=== PATIENT | female | born 1970 | race Native Hawaiian/Other Pacific Islander ===

== ENCOUNTER 2017-07-25 18:19 | Emergency (ER) | payer OTHER ==
--- NOTE | 2017-07-25 19:20 | C.PDOC ---
History Of Present Illness Patient presents to the ER with a complaint of left breast pain that worsens with movement and a cough for the past 3 months. Patient had a lumpectomy last year and had radiation therapy for malignant CA of the left breast. Denies fever , chills, nausea, or vomiting. Time Seen by Provider: 07/25/17 19:19 Chief Complaint (Nursing): Chest Pain History Per: Patient History/Exam Limitations: no limitations Onset/Duration Of Symptoms: Days Current Symptoms Are (Timing): Still Present Severity: Mild Pain Scale Rating Of: 4 Quality: "Pain" Associated Symptoms: denies: Nausea, Dyspnea, Diaphoresis, Syncope Modifying Factors: None Exacerbating Factors: Movement Alleviating Factors: None Recent travel outside of the [place]: No Past Medical History Reviewed: Historical Data, Nursing Documentation, Vital Signs Vital Signs: Last Vital Signs Temp 98.6 F 07/25/17 19:04 Pulse 75 07/25/17 19:04 Resp 20 07/25/17 19:04 BP 109/73 07/25/17 19:04 Pulse Ox 99 07/25/17 19:42 - Medical History Other PMH: Breast Cancer Other Surgeries: Lumpectomy Family History: States: Unknown Family Hx - Social History Hx Alcohol Use: No Hx Substance Use: No - Immunization History Hx Tetanus Toxoid Vaccination: No Hx Influenza Vaccination: No Hx Pneumococcal Vaccination: No Review Of Systems Constitutional: Negative for: Fever, Chills Respiratory: Positive for: Cough Gastrointestinal: Negative for: Nausea, Vomiting Musculoskeletal: Positive for: Other (Left breast pain) Physical Exam - Physical Exam Appears: Non-toxic Skin: Warm, Dry Head: Normacephalic Oral Mucosa: Moist Chest: Other (1.5x3cm area of induration/scar to left lateral aspect of left breast) Cardiovascular: Rhythm Regular Respiratory: No Rales, No Rhonchi, No Wheezing Gastrointestinal/Abdominal: Soft, No Tenderness Neurological/Psych: Oriented x3 ED Course And Treatment - Laboratory Results Result Diagrams: 07/25/17 19:56 07/25/17 19:56 ECG: Interpreted By Me, Viewed By Me ECG Rhythm: Sinus Rhythm (77), Nonspecific Changes O2 Sat by Pulse Oximetry: 99 (Room air) Pulse Ox Interpretation: Normal Progress Note: CT chest, EKG, blood work, and urinalysis ordered. Reevaluation Time: 23:40 Reassessment Condition: Improved Medical Decision Making Medical Decision Making: Upon provider reevaluation patient is feeling better, is medically stable, and requires no further treatment in the ED at this time. Patient will be discharged home. Counseling was provided and all questions were answered regarding diagnosis and need for follow up with dr michelle. There is agreement to discharge plan. Return if symptoms persist or worsen. Disposition Counseled Patient/Family Regarding: Studies Performed, Diagnosis, Need For Followup - Disposition Referrals: Deysi Michelle MD [Medical Doctor] - Disposition: HOME/ ROUTINE Disposition Time: 19:20 Condition: FAIR Instructions: Chest Wall Pain (ED) Forms: e27 (Indonesian) - Clinical Impression Clinical Impression: Pleuritic pain, Chest wall pain - Scribe Statement The provider has reviewed the documentation as recorded by the Scribe Goyo Lima All medical record entries made by the Scribe were at my direction and personally dictated by me. I have reviewed the chart and agree that the record accurately reflects my personal performance of the history, physical exam, medical decision making, and the department course for this patient. I have also personally directed, reviewed, and agree with the discharge instructions and disposition.
[2017-07-25 19:24] VITALS: TEMP 98.6
[2017-07-25 20:02] LABS: BASO % 0.5 % (0.0-2.0); EOS # 0.2 K/uL (0.0-0.7); EOS % 3.1 % (0.0-4.0); HEMATOCRIT 37.2 % (34.0-47.0); LYMPH # 1.8 K/uL (1.0-4.3); LYMPH % 24.6 % (20.0-40.0); MEAN CORPUSCULAR HEMOGLOBIN 30.2 pg (27.0-31.0); MEAN CORPUSCULAR HGB CONC 33.2 g/dL (33.0-37.0); MEAN PLATELET VOLUME 8.3 fL (7.2-11.7); MONO # 0.8 K/uL (0.0-0.8); NRBC % 0.1 % (0.0-2.0); RED CELL DISTRIBUTION WIDTH 13.2 % (11.5-14.5)
[2017-07-25 20:03] LABS: WHITE BLOOD COUNT 7.4 K/uL (4.8-10.8)
[2017-07-25 20:09] LABS: RBC URINE 1 /hpf (0-3); URINE BACTERIA RARE (<OCC); URINE BILIRUBIN NEGATIVE (NEGATIVE); URINE BLOOD NEGATIVE (NEGATIVE); URINE COLOR Yellow (YELLOW); URINE GLUCOSE (UA) 2+ mg/dL (Normal); URINE KETONE TRACE mg/dL (NEGATIVE); URINE LEUKOCYTE ESTERASE NEG Leu/uL (Negative); URINE PROTEIN NEGATIVE (NEGATIVE); URINE UROBILINOGEN NORMAL mg/dL (0.2-1.0); WBC URINE 1 /hpf (0-5)
[2017-07-25 20:14] LABS: ALB/GLOB RATIO 1.2 (1.0-2.1); ALKALINE PHOSPHATASE 34 U/L (38-126); ALT/SGPT 29 U/L (9-52); AST/SGOT 17 U/L (14-36); BILIRUBIN,TOTAL 0.5 mg/dL (0.2-1.3); BLOOD UREA NITROGEN 16 mg/dL (7-17); CALCIUM 8.4 mg/dl (8.6-10.4); CARBON DIOXIDE 25 mmol/L (22-30); CHLORIDE 102 mmol/L (98-107); GFR AFRICAN-AMERICAN > 60; GLUCOSE,RANDOM 66 mg/dL (65-105); POTASSIUM 3.4 mmol/L (3.6-5.2); SODIUM 135 mmol/L (132-148); TOTAL PROTEIN 6.5 g/dL (6.3-8.3)
[2017-07-25] MEDS ORDERED: Iodixanol 320 MG/ML 100 ML BOTTLE IV ONE (22:31)
--- NOTE | 2017-07-25 23:21 | CT ---
EXAM: CT Chest With Intravenous Contrast EXAM DATE/TIME: 07/25/2017 7:30 PM CLINICAL HISTORY: 46 years old, female; Pain; Chest pain; Left-sided chest pain; Additional info: Left breast pain, S/P lumpectomy, breast ca TECHNIQUE: Axial computed tomography images of the chest with intravenous contrast. All CT scans at this facility use one or more dose reduction techniques, viz.: automated exposure control; ma/kV adjustment per patient size (including targeted exams where dose is matched to indication; i.e. head); or iterative reconstruction technique. Coronal and sagittal reformatted images were created and reviewed. CONTRAST: 100 mL of visipaque 320 administered intravenously. COMPARISON: There are no prior studies for comparison. FINDINGS: Lungs and pleural spaces: Trachea and main bronchi are patent. There is a focal pleural parenchymal scarring.There is no pneumothorax. There is minimal atelectasis and scarring in the middle lobe. There is a small cyst in the middle lobe. There is dependent atelectasis at the lung bases bilaterally. There is scarring at the left base. There is patchy airspace disease in the periphery of the left upper lobe including the lingula. There are no effusions. Heart: Heart size is normal. There is no pericardial effusion.Aorta and main pulmonary artery are normal in caliber. Mediastinum: There are mildly prominent mediastinal nodes. There is no hilar adenopathy.Esophagus is unremarkable. Thyroid: Thyroid is not optimally demonstrated. Bones/joints: There are no acute osseous abnormalities. Soft tissues: There is scarring and skin thickening in the left breast. There is a 2 x 1.5 cm nodular opacity at the level scarring Lymph nodes: See above. Upper abdomen: There are no acute abnormalities in the visualized portion of the abdomen. There is a cyst in the liver. There is a granuloma in the liver. Gallbladder is partially distended with a stone. IMPRESSION: Peripheral left upper lobe airspace disease pneumonia versus post radiation change; scarring in the left breast with nodular opacity, correlation with prior mammograms and imaging advised; mildly prominent mediastinal nodes; gallstone Additional findings as described above.
[2017-07-25 23:50] VITALS: BP 110/60; PULSE 80; RESP 14; O2SAT 98
== END 2017-07-25 23:50 | disposition home or self-care (01) ==
LOC: C.ER 18:19
DX: R07.89 Other chest pain (principal); R07.81 Pleurodynia
CPT/HCPCS: 71260; 80053; 81001; 84484; 84703; 85025; 85610; 85730; 99283; Q9967

== ENCOUNTER 2018-09-13 09:52 | Outpatient (CLI) | payer OTHER | END 2018-09-13 09:53 | disposition home or self-care (01) | LOC: C.LAB 09:52 | DX: N93.9 Abnormal uterine and vaginal bleeding, unspecified (principal); R10.30 Lower abdominal pain, unspecified ==